=== PATIENT | male | born 1975 | race Caucasian/White ===

== ENCOUNTER 2018-07-09 11:40 | Emergency (ER) | payer SELFPAY ==
[~2018-07-09] VITALS: Ht 172.7 cm; Wt 57.1 kg
== END 2018-07-09 14:32 | disposition home or self-care (01) ==
LOC: ER 11:40
DX: M25.551 Pain in right hip (principal); F17.200 Nicotine dependence, unspecified, uncomplicated
CPT/HCPCS: 73502; 99283-25

== ENCOUNTER 2020-01-05 14:48 | Emergency (ER) | payer OTHER ==
[~2020-01-05] VITALS: Ht 172.7 cm; Wt 54.4 kg
[2020-01-05] MEDS ORDERED: Norco 5-325 Ta1 EACH PO (16:13)
[2020-01-05] MEDS ORDERED: IBUP600 PO (16:13)
== END 2020-01-05 16:33 | disposition home or self-care (01) ==
LOC: ER 14:48
DX: S68.521A Partial traumatic transphalangeal amputation of right thumb, initial encounter (principal); W22.8XXA Striking against or struck by other objects, initial encounter; F17.200 Nicotine dependence, unspecified, uncomplicated
CPT/HCPCS: 73120; 90471; 90714; 96365; 96375; 96376; 99284-25; J0690; J2270; J2405